=== PATIENT | male | born 1960 | race Caucasian/White ===

== ENCOUNTER 2018-08-02 04:20 | Outpatient (CLI) | payer BC ==
[2018-08-02 09:43] LABS: #Eosinphils 0.1 thou/uL (0.0-0.7); #Monocytes 0.5 thou/uL (0.11-0.59); %Basophils 0.6 % (0.0-1.0); %Eosinophils 1.9 % (0.0-10.0); %Monocytes 9.3 % (0.0-10.0); %Neutrophils 53.3 % (42.0-75.0); Hemoglobin 15.6 g/dL (14.0-18.0); Mean Corpuscular HGB CONC 33.7 g/dL (32.0-36.0); Mean Corpuscular Hemoglobin 30.7 pg (27.0-31.0); Mean Corpuscular Volume 91.1 fL (78.0-98.0); Mean Platelet Volume 6.7 fL (7.4-10.4); Platelet Count 235 thou/uL (130-400); RBC Distribution Width 12.6 % (11.5-14.5); Red Blood Cell (RBC) Count 5.09 mill/uL (4.70-6.10); White Blood Cell (WBC) Count 5.6 thou/uL (4.8-10.8)
[2018-08-02 09:54] LABS: PTT 30.7 SEC (22.9-36.1); Prothrombin Time 13.6 SEC (12.0-14.7)
[2018-08-02 10:07] LABS: Anion Gap 10 mmol/L (10-20); BUN (Urea Nitrogen) 18 mg/dL (8.4-25.7); Calc. Creatinine Clearance 0 mL/min (70-130); Calcium 9.2 mg/dL (7.8-10.44); Carbon Dioxide 29 mmol/L (22-29); Chloride 107 mmol/L (98-107); Estimated GFR-MDRD 90; Glucose 91 mg/dL (70-105); Potassium 4.5 mmol/L (3.5-5.1); Sodium 141 mmol/L (136-145)
--- NOTE | 2018-08-03 10:05 | EKG ---
Test Reason : Blood Pressure : / mmHG Vent. Rate : 064 BPM Atrial Rate : 064 BPM P-R Int : 204 ms QRS Dur : 190 ms QT Int : 466 ms P-R-T Axes : 028 -62 049 degrees QTc Int : 480 ms Normal sinus rhythm Left axis deviation RBBB pattern T wave abnormality, consider anterior ischemia electrical interference artifact Abnormal ECG No previous ECGs available Confirmed by DR. Karissa SWANN ([id number]) on 08/03/2018 10:04:41 AM Referred By: DEN Confirmed By:DR. Karissa SWANN
== END 2018-08-02 04:21 | disposition home or self-care (01) ==
LOC: LABBT 04:20
PROVIDERS: ATTEND Internal Medicine Cardiovascular Disease
DX: Z01.818 Encounter for other preprocedural examination (principal); Q21.1 Atrial septal defect
CPT/HCPCS: 93005; 93010

== ENCOUNTER 2018-08-05 11:12 | Day surgery (SDC) | payer BC ==
[2018-08-02 08:44] VITALS: BMI 27.1
[2018-08-05] MEDS ORDERED: Atropine Sulfate 1 mg/10 ml Syringe ONE (12:32)
[2018-08-05] MEDS ORDERED: PROPOFOL 20 ML ONE (12:32)
[2018-08-05] MEDS ORDERED: PROPOFOL 200 MG/20 ML VIAL ONE (13:23)
--- NOTE | 2018-08-05 17:54 | OP ---
DATE OF PROCEDURE: 08/05/2018 PROCEDURE PERFORMED: Transesophageal echocardiogram. PREPROCEDURE DIAGNOSIS: Atrial septal defect. Transesophageal echo was done to evaluate for ASD. Anesthesia department provided with sedation for the patient. Please see their notes for details. DESCRIPTION OF PROCEDURE: After adequate sedation was achieved, the transesophageal probe was inserted into the mouth and into the esophagus, and multiplanar views were then obtained. Left ventricle is normal in size with normal systolic function. EF was estimated at 55% to 60%. Left atrium is normal size. Right atrium is severely dilated. Right ventricle is severely dilated. Interatrial septum has a large defect close on the ventricular side of the interatrial septum with only jmam-[id number]-onndp shunting. Mitral valve has ecew-yp-kvrvmdcd mitral valve regurgitation. Tricuspid valve has moderate tricuspid regurgitation. Pulmonary valve is structurally normal. There is mild PI. No stenosis. Pulmonary valve seems normal size. Thoracic aorta is normal in caliber with no interval dilatations. No dissections. CONCLUSIONS: 1. Normal systolic function with EF of 55% to 60%. 2. Dilated right ventricle. 3. Dilated right atrium. 4. Large ventricular septal defect with mostly [id number]-ma-ersnk shunting. Job ID: [id number]
== END 2018-08-05 14:18 | disposition home or self-care (01) ==
LOC: CCL 11:12
PROVIDERS: ATTEND Internal Medicine Cardiovascular Disease
PROC: B246ZZ4 Ultrasonography of Right and Left Heart, Transesophageal (ICD-10-PCS; principal; 2018-08-05)
DX: Q21.1 Atrial septal defect (principal); F17.210 Nicotine dependence, cigarettes, uncomplicated; Z79.82 Long term (current) use of aspirin
CPT/HCPCS: 93312; J0461; J2704

== ENCOUNTER 2018-11-06 07:36 | Day surgery (SDC) | payer BC ==
[2018-11-05 11:58] VITALS: BMI 27.1
[2018-11-06] MEDS ORDERED: ceFAZolin Sodium (SDC) 2 GM/100 ML BAG ONE (08:24)
[2018-11-06 08:48] LABS: #Basophils 0.1 thou/uL (0.0-0.2); #Eosinphils 0.5 thou/uL (0.0-0.7); #Lymphocytes 1.4 thou/uL (1.20-3.40); #Monocytes 0.6 thou/uL (0.11-0.59); #Neutrophils 4.2 thou/uL (1.40-6.50); %Basophils 0.8 % (0.0-1.0); %Eosinophils 7.3 % (0.0-10.0); %Lymphocytes 20.5 % (21.0-51.0); %Monocytes 8.7 % (0.0-10.0); %Neutrophils 62.7 % (42.0-75.0); Hemoglobin 12.8 g/dL (14.0-18.0); Mean Corpuscular HGB CONC 31.9 g/dL (32.0-36.0); Mean Corpuscular Hemoglobin 26.7 pg (27.0-31.0); Mean Corpuscular Volume 83.7 fL (78.0-98.0); Platelet Count 303 thou/uL (130-400); RBC Distribution Width 14.1 % (11.5-14.5); White Blood Cell (WBC) Count 6.8 thou/uL (4.8-10.8)
[2018-11-06 09:10] LABS: ALT (SGPT) 18 U/L (8-55); AST (SGOT) 24 U/L (5-34); Alkaline Phosphatase 63 U/L (40-150); Anion Gap 12 mmol/L (10-20); BUN (Urea Nitrogen) 19 mg/dL (8.4-25.7); Bilirubin, Total 0.4 mg/dL (0.2-1.2); Calc. Creatinine Clearance 127 mL/min (70-130); Calcium 9.2 mg/dL (7.8-10.44); Carbon Dioxide 21 mmol/L (22-29); Chloride 105 mmol/L (98-107); Estimated GFR-MDRD Greater than 90; Globulin 3.6 g/dL (2.4-3.5); Glucose 84 mg/dL (70-105); Potassium 4.3 mmol/L (3.5-5.1); Protein, Total 7.6 g/dL (6.0-8.3); Sodium 134 mmol/L (136-145)
--- NOTE | 2018-11-06 09:21 | HP ---
CHIEF COMPLAINT: Bilateral inguinal hernia. HISTORY OF PRESENT ILLNESS: The patient is a 58-year-old male, who has had a left inguinal hernia for about a year, which occasionally prolapses into the scrotum. No previous repair. Found to have bilateral inguinal hernias. PAST MEDICAL HISTORY: Coronary artery disease. PAST SURGICAL HISTORY: None. MEDICATIONS: Aspirin. ALLERGIES: HE HAS NO KNOWN DRUG ALLERGIES. FAMILY HISTORY: Father . Mother with hypertension. SOCIAL HISTORY: . Works in [employer]. Rare alcohol. Former smoker. Uses smokeless tobacco. PHYSICAL EXAMINATION: VITAL SIGNS: Height 71, weight 196, and body mass index 27.33. GENERAL: Well-developed, well-nourished male, in no apparent distress. HEENT: Unremarkable. LUNGS: Clear. HEART: Regular rate and rhythm. ABDOMEN: Soft and nontender. Good bowel sounds. EXTREMITIES: Good pulses. No pedal edema. He has a large left inguinal hernia and a small right inguinal hernia. ASSESSMENT: Bilateral inguinal hernia. PLAN: Laparoscopic robotic-assisted bilateral inguinal hernia repair with mesh. CONSENT: I have discussed planned procedure as well as risk of bleeding, infection, and recurrence of the hernia. He understands and gives informed consent. Job ID: [id number]
[2018-11-06] MEDS ORDERED: Bupivacaine/Epinephrine 0.25% 30 ML VIAL ONE (09:48)
[2018-11-06] MEDS ORDERED: Fentanyl 100 MCG/2 ML VIAL ONE ×2 (09:51→12:20)
--- NOTE | 2018-11-06 12:49 | OP ---
DATE OF PROCEDURE: 11/06/2018 PREOPERATIVE DIAGNOSIS: Bilateral inguinal hernia. PROCEDURE PERFORMED: Laparoscopic robotic-assisted bilateral inguinal hernia repair with mesh. INDICATIONS: This is a 58-year-old male with bilateral inguinal hernias. The left side was larger than the right. FINDINGS: Very large scrotal left inguinal hernia, smaller right inguinal hernia. DESCRIPTION OF PROCEDURE: After informed consent was obtained, the patient was taken to the operating room and given general endotracheal anesthesia. Left inguinal hernia was reduced with difficulty on the table. Then, his abdomen was prepped and draped in usual fashion. Local anesthesia was infiltrated subcutaneously and deep. A supraumbilical incision was performed. Subcu divided sharply. The fascia was grasped and the fascia incised. Digital palpation revealed no local adhesions. A blunt 12-mm trocar was inserted. Pneumoperitoneum was created to a pressure of 15 mmHg. The 30 degree laparoscope inserted under direct vision. Two 8 mm ports were placed just lateral to the rectus at the level of the first incision. The patient was placed in Trendelenburg position and the robot docked. I went to the console, the left side approached first. The peritoneum was opened from median umbilical ligament laterally and a subperitoneal plane was developed using blunt and sharp dissection. The hernia sac was very large, most of it was reduced. It was then divided and further reduced. Then moved to the right side and again the peritoneum opened from median umbilical ligament laterally. Subperitoneal plane developed using blunt and sharp dissection. The hernia sac was reduced. A large contour mesh was inserted, placed within its pocket. Then, a medium right contour mesh inserted, placed in its pocket. Each were secured with a 2-0 silk suture, tied intracorporeally to the pubic tubercle medially and to the anterior abdominal wall just medial to the epigastric vessels. Then, hemostasis was assured. The peritoneum was closed from lateral to medial utilizing a running 3-0 PDS V-Loc. Hemostasis was assured. All of the needles were retrieved. Trocars and retractors were removed. The abdomen was decompressed. The fascia was closed with 0 Vicryl suture. The skin was closed with interrupted 4-0 Rapide. Dermabond applied. The patient tolerated the procedure well, transferred to Recovery in good condition. Sponge and needle count verified correct x2. Job ID: [id number]
== END 2018-11-06 15:55 | disposition home or self-care (01) ==
LOC: SDC 07:36
PROVIDERS: ATTEND Surgery
PROC: 0YUA4JZ Supplement Bilateral Inguinal Region with Synthetic Substitute, Percutaneous Endoscopic Approach (ICD-10-PCS; principal; 2018-11-06)
DX: K40.20 Bilateral inguinal hernia, without obstruction or gangrene, not specified as recurrent (principal); I25.10 Atherosclerotic heart disease of native coronary artery without angina pectoris; Z87.891 Personal history of nicotine dependence; Z79.899 Other long term (current) drug therapy
CPT/HCPCS: 36415; 80053; 85025; C1781; J0690; J3010

== ENCOUNTER 2018-12-20 06:00 | Day surgery (SDC) | payer BC ==
[2018-12-19 11:59] VITALS: BMI 26.4
[2018-12-20] MEDS ORDERED: Bupivacaine/Epinephrine 0.25% 30 ML VIAL ONE (06:39)
[2018-12-20] MEDS ORDERED: Midazolam HCl 2 mg/2 ml Vial ONE (07:25)
[2018-12-20] MEDS ORDERED: Fentanyl 100 MCG/2 ML VIAL ONE (07:25)
--- NOTE | 2018-12-20 11:30 | OP ---
DATE OF PROCEDURE: 12/20/2018 PREOPERATIVE DIAGNOSIS: Recurrent left inguinal hernia. PROCEDURE PERFORMED: Open recurrent left inguinal hernia repair with mesh. INDICATIONS: A 58-year-old male who is just 2 months out from bilateral laparoscopic robotic-assisted hernia repair, who developed a recurrent bulge in the left groin that he had to reduce. Findings, very unusual. He had a very thick spermatic cord. There was a defect lateral to the cord at the internal ring, quite a bit of fatty tissue and hypervascular cord. DESCRIPTION OF PROCEDURE: After informed consent was obtained, the patient was taken to the operating room and given general endotracheal anesthesia, placed in the supine position. His groin area was prepped and draped in usual fashion. Local anesthesia infiltrated subcutaneously and deep, and a transverse left inguinal incision was performed. Subcu divided sharply. The fascia of the external oblique was incised in direction of its fibers through the external ring. The spermatic cord was very large and fatty. This was isolated with a Leming drain. Cremasteric fibers were . There was a lot of lipomatosis fatty tissue and hypervascularity. A true hernia sac was not able to be found. However, there was a definite defect, but it was in an unusual location, it was lateral to the internal ring. A PHS hernia system was inserted. The posterior layer in this defect laid out. It was sutured to the pubic tubercle medially. A notch was cut out for the spermatic cord. Laterally, it was tucked under the external oblique fascia. Hemostasis was achieved utilizing electrocautery. The cord placed anatomic. The external oblique fascia closed with a running 3-0 Vicryl. Sue was closed with interrupted 3-0 Vicryl and the skin closed with a running subcuticular 4-0 Rapide. Steri-Strips applied. Sterile bandage applied. The patient tolerated the procedure well, transferred to Recovery in good condition. Sponge and needle count verified correct x2. Job ID: [id number]
[2018-12-20] MEDS ORDERED: Dexamethasone 20 MG/5 ML VIAL ONE (11:36)
[2018-12-20] MEDS ORDERED: PROPOFOL 200 MG/20 ML VIAL ONE (11:36)
[2018-12-20] MEDS ORDERED: Ketorolac Tromethamine 30 MG/ML VIAL ONE (11:36)
[2018-12-20] MEDS ORDERED: Ondansetron PF 4 MG/2 ML Vial ONE (11:36)
[2018-12-20] MEDS ORDERED: ePHEDrine 50 MG/ML VIAL ONE (11:36)
[2018-12-20] MEDS ORDERED: Lidocaine 1% PF 5 ML VIAL ONE (11:36)
== END 2018-12-20 10:15 | disposition home or self-care (01) ==
LOC: SDC 06:00
PROVIDERS: ATTEND Surgery
PROC: 0YU60JZ Supplement Left Inguinal Region with Synthetic Substitute, Open Approach (ICD-10-PCS; principal; 2018-12-20)
DX: K40.91 Unilateral inguinal hernia, without obstruction or gangrene, recurrent (principal); F17.290 Nicotine dependence, other tobacco product, uncomplicated
CPT/HCPCS: C1781; J0131; J0690; J1100; J1885; J2001; J2250; J2405; J2704; J3010; J3490